=== PATIENT | male | born 1960 | race Caucasian/White ===

== ENCOUNTER → 2016-12-03 | Outpatient (CLI) | payer MEDICAID ==
--- NOTE | 2016-12-03 11:58 | DX ---
PA and Lateral Chest X-ray 1126 hours History: Followup right-sided rib fracture and pneumothorax. Comparison to prior study from November 26, 2016. Findings: Heart size and pulmonary vasculature are normal. The lungs are clear without infiltrates or effusions. The previously visualized right-sided pneumothorax has resolved. There is improved inspir ation on today's study. Fracture of the posterior lateral right 9th rib is once again identified with out evidence of callus formation since prior study. There is also nondisplaced fracture of posterior lateral right 10th rib. Impression: 1. Interval resolution of right-sided pneumothorax. 2. Fractures of the posterior lateral right 9th and 10th ribs. No healing is appreciated at this poin t.
== END ==
LOC: BMCIMAGING 11:27
PROVIDERS: ATTEND Internal Medicine
DX: S22.41XA Multiple fractures of ribs, right side, initial encounter for closed fracture (principal); J93.9 Pneumothorax, unspecified